=== PATIENT | male | born 1955 | race Caucasian/White ===

== ENCOUNTER → 2016-07-07 | Outpatient (CLI) | payer BC ==
[~2016-07-07] MED LIST: EPP3/2 IM; FAMO40TA6 PO
--- NOTE | 2016-07-07 09:53 | DIAGNOSTIC IMAGING REPORT ---
ULTRASOUND BILATERAL LOWER EXTREMITY VENOUS CLINICAL HISTORY: Right leg pain and swelling. COMPARISON STUDY: Right lower extremity venous ultrasound dated 08/03/2007. TECHNIQUE: Real-time, grayscale, and color Doppler sonography of the deep veins of the right and left lower extremity was performed from the inguinal crease to the calf. Compression and augmentation were utilized. FINDINGS: There is age indeterminant thrombus in the right calf present within the peroneal veins. Occlusive and acute appearing deep venous thrombosis is identified within the left calf in the peroneal veins. Nonocclusive clot is present within the left anterior tibial vein. There is no sonographic evidence of above knee deep venous thrombosis identified in the right or left lower extremity. The common femoral, superficial femoral, and popliteal veins are patent and normally compressible bilaterally. The greater saphenous vein and the profunda femoris vein at the junction with the common femoral vein are clear in both legs. IMPRESSION: 1. There is acute appearing occlusive deep venous thrombosis identified in the left calf within the peroneal vein. Thrombus is also seen within the left anterior tibial vein. 2. There is age indeterminant and possibly chronic the venous thrombosis present within the right peroneal vein. 3. There is no sonographic evidence of above knee deep venous thrombosis identified in the right or left lower extremity. Electronically signed by: Jose Guardado M.D. 07/07/2016 9:52 AM Dictated Date/Time: 07/07/2016 9:48 AM
== END | disposition home or self-care (01) ==
LOC: C.ULTR 09:13
PROVIDERS: ATTEND Internal Medicine Hematology & Oncology
DX: I82.401 Acute embolism and thrombosis of unspecified deep veins of right lower extremity (principal)